=== PATIENT | male | born 1940 | race Caucasian/White ===

== ENCOUNTER → 2021-09-18 | Day surgery (SDC) | payer BC ==
[2021-09-16 14:27] VITALS: BMI 23.2
[~2021-09-18] MED LIST: KETAMINE HCL 200 MG/20 ML VIAL ONE
[2021-09-18 08:52] VITALS: TEMP 98
[2021-09-18 10:06] VITALS: BP 154/86; PULSE 63
== END | disposition home or self-care (01) ==
LOC: JASU-ENDO 04:42
PROVIDERS: ATTEND Internal Medicine Gastroenterology
PROC: 0D5P8ZZ Destruction of Rectum, Via Natural or Artificial Opening Endoscopic (ICD-10-PCS; principal; 2021-09-18 08:00)
DX: K62.7 Radiation proctitis (principal); K57.30 Diverticulosis of large intestine without perforation or abscess without bleeding; K64.8 Other hemorrhoids; K62.5 Hemorrhage of anus and rectum; Z85.46 Personal history of malignant neoplasm of prostate

== ENCOUNTER 2022-08-04 04:41 | Day surgery (SDC) | payer BC ==
[2022-08-03 12:49] VITALS: BMI 25.1
[2022-08-04 12:50] VITALS: TEMP 97.2
[2022-08-04 13:55] VITALS: BP 133/85; PULSE 96; RESP 20
== END 2022-08-04 13:57 | disposition home or self-care (01) ==
LOC: JASU-ENDO 04:41
PROVIDERS: ATTEND Internal Medicine Gastroenterology
PROC: 0D5P8ZZ Destruction of Rectum, Via Natural or Artificial Opening Endoscopic (ICD-10-PCS; principal; 2022-08-04 11:30)
DX: K62.7 Radiation proctitis (principal); K64.8 Other hemorrhoids

== ENCOUNTER 2024-03-14 04:41 | Day surgery (SDC) | payer BC ==
[2024-03-13 12:24] VITALS: BMI 23.5
[2024-03-14 13:12] VITALS: BP 116/56; PULSE 61; RESP 14; TEMP 98
== END 2024-03-14 13:15 | disposition home or self-care (01) ==
LOC: JASU-ENDO 04:41
PROVIDERS: ATTEND Internal Medicine Gastroenterology
PROC: 0D5P8ZZ Destruction of Rectum, Via Natural or Artificial Opening Endoscopic (ICD-10-PCS; principal; 2024-03-14 11:30)
DX: K62.7 Radiation proctitis (principal); K64.8 Other hemorrhoids; K57.30 Diverticulosis of large intestine without perforation or abscess without bleeding